=== PATIENT | male | born 1995 | race Caucasian/White ===

== ENCOUNTER 2019-10-25 15:37 | Emergency (ER) | payer OTHER ==
[~2019-10-25] VITALS: Ht 190.5 cm; Wt 79.8 kg
[2019-10-25 15:50] VITALS: BP 128/80; Ht 190.5 cm; Wt 79.8 kg
== END 2019-10-25 17:18 | disposition home or self-care (01) ==
LOC: ED 15:37
DX: J02.9 Acute pharyngitis, unspecified (principal); F41.8 Other specified anxiety disorders; F17.210 Nicotine dependence, cigarettes, uncomplicated
CPT/HCPCS: 82962; Q0092